=== PATIENT | male | born 1980 | race Hispanic/Latino ===

== ENCOUNTER → 2021-03-22 | Outpatient (CLI) | payer OTHER ==
--- NOTE | 2021-03-22 16:39 | REP ---
INDICATION: Left retroareolar focal pain in lung COMPARISON: None TECHNIQUE: Real-time sonographic evaluation of the retroareolar region of the left breast with images of the right breast for comparison FINDINGS: There is a flame shaped hypoechoic retroareolar region seen in the left breast which measures 2.4 x 1 x 2 cm with a similar finding seen on the right but smaller in size measuring 1 x 0.5 x 0.6 cm. IMPRESSION: Likely gynecomastia on the left, however, mammographic correlation is recommended. ACR category 0 <Electronically signed by Mitesh Rene > 03/22/21 [id number]
== END ==
LOC: M RAD 15:50
PROVIDERS: ATTEND Physician Assistant
DX: N63.42 Unspecified lump in left breast, subareolar (principal)

== ENCOUNTER → 2021-05-19 | Outpatient (CLI) | payer OTHER ==
--- NOTE | 2021-05-19 10:53 | REP ---
INDICATION: F/U ABNORMAL BREAST US. COMPARISON: Ultrasound 03/22/2021. TECHNIQUE: MLO and CC views bilateral breasts with tomosynthesis. FINDINGS: Asymmetric fibroglandular tissue is seen in the left retroareolar region. No mass or architectural distortion is seen. No clustered microcalcifications are seen. IMPRESSION: BIRADS/ACR category 2, benign. Asymmetric gynecomastia left retroareolar region, corresponding to the ultrasound findings of 03/22/2021. This mammogram was interpreted with the aid of an FDA-approved computer-aided detection system. The patient states she had a clinical breast exam in November 2020.. The patient letter being requested is M2. RECOMMENDATION: Clinical correlation and follow-up. <Electronically signed by Rivera Rees > 05/19/21 [id number]
== END ==
LOC: M WHC 09:43
PROVIDERS: ATTEND Physician Assistant
DX: N62 Hypertrophy of breast (principal)
CPT/HCPCS: 77066; G0279